=== PATIENT | female | born 1990 | race African-American/Black ===

== ENCOUNTER 2017-08-05 17:56 | Emergency (ER) | payer MEDICARE ==
[~2017-08-05] VITALS: Ht 160 cm; Wt 84.0 kg
[2017-08-05] MEDS ORDERED: SODIUM CHLORIDE 0.9% 1,000 ML IV ONE (22:56)
[2017-08-05] MEDS ORDERED: ACETAMINOPHEN 325MG TABLET PO PRN (23:00)
[2017-08-05] MEDS ORDERED: ONDANSETRON HCL 4MG/2ML VIAL IV ONE (23:00)
[2017-08-05 23:17] LABS: BASOPHILS % 0.3 % (0.0-2.0); EOSINOPHILS % 0.5 % (0.0-5.0); HEMATOCRIT. 35.4 % (36.0-48.0); HEMOGLOBIN. 11.1 g/dL (12.0-16.0); MEAN CORPUSCULAR HEMOGLOBIN 24.4 pg (28.0-32.0); MEAN PLATELET VOLUME 11.4 fl (7.4-10.4); MONOCYTES % 6.4 % (2.0-8.0); NEUTROPHILS % 73.8 % (40.0-76.0); PLATELET 142 x1000/uL (130-400); RED BLOOD CELL COUNT 4.54 mill/uL (4.2-5.4); RED CELL DISTRIBUTION WIDTH 21.3 % (11.6-14.6)
[2017-08-05 23:24] LABS: CARBON DIOXIDE 27 mEq/L (21-32); CHLORIDE 105 mEq/L (98-107)
[2017-08-05 23:49] LABS: B-HCG QUANTITATIVE 177810 mIU/mL (<3)
[2017-08-06 00:23] LABS: CLARITY URINE CLEAR (CLEAR); COLOR URINE DARK YELLOW (YELLOW); KETONES URINE TRACE (NEGATIVE); LEUKOCYTE ESTERASE URINE TRACE (NEGATIVE); NITRITE URINE NEGATIVE (NEGATIVE); OCCULT BLOOD URINE NEGATIVE (NEGATIVE); PROTEIN URINE TRACE (NEGATIVE); SPECIFIC GRAVITY URINE 1.038 (1.005-1.030)
[2017-08-06 00:46] LABS: *AMPHETAMINES SCREEN URINE NEGATIVE (NEGATIVE); *BARBITURATES SCREEN URINE NEGATIVE (NEGATIVE); *BENZODIAZEPINES SCREEN URINE NEGATIVE (NEGATIVE); *COCAINE SCREEN URINE NEGATIVE (NEGATIVE); METHADONE URINE SCREEN NEGATIVE (NEGATIVE); OPIATES URINE SCREEN NEGATIVE (NEGATIVE); PHENCYCLIDINE URINE SCREEN NEGATIVE (NEGATIVE)
[2017-08-06 01:03] LABS: CANNABINOID URINE SCREEN PRESUMTIVE POSITIVE (NEGATIVE)
[2017-08-06] MEDS: HYDROCODONE/ACETAMINOPHEN 5/325MG TABLET PO SCH ×2 (02:28→04:11)
[2017-08-06 04:11] VITALS: BP 122/74
[2017-08-10 09:16] LABS: CHLAMYDIA TRACHOMATIS NAA Negative (Negative); NEISSERIA GONORRHOEAE NAA Negative (Negative)
== END 2017-08-06 04:09 | disposition home or self-care (01) ==
LOC: ER 17:56
DX: O21.9 Vomiting of pregnancy, unspecified (principal); R42 Dizziness and giddiness; R10.30 Lower abdominal pain, unspecified; Z3A.01 Less than 8 weeks gestation of pregnancy
CPT/HCPCS: 36415; 76801; 76817; 80053; 80305; 81001; 81025; 84702; 85025; 86850; 86900; 86901; 87077; 87086; 87186; 87210; 87491; 87591; 96361; 96374; 99285; J2405; Z7610

== ENCOUNTER 2017-08-24 01:04 | Emergency (ER) | payer MEDICARE ==
[~2017-08-24] VITALS: Ht 160 cm; Wt 82.0 kg
[2017-08-24 03:56] LABS: CLARITY URINE CLOUDY (CLEAR); COLOR URINE YELLOW (YELLOW); KETONES URINE 3+ (NEGATIVE); LEUKOCYTE ESTERASE URINE NEGATIVE (NEGATIVE); NITRITE URINE NEGATIVE (NEGATIVE); OCCULT BLOOD URINE NEGATIVE (NEGATIVE); PROTEIN URINE TRACE (NEGATIVE); SPECIFIC GRAVITY URINE 1.037 (1.005-1.030)
[2017-08-24 04:28] LABS: BASOPHILS % 0.3 % (0.0-2.0); EOSINOPHILS % 0.4 % (0.0-5.0); HEMATOCRIT. 33.4 % (36.0-48.0); HEMOGLOBIN. 10.5 g/dL (12.0-16.0); LYMPHOCYTES % 17.7 % (20.0-50.0); MEAN CORPUSCULAR HEMOGLOBIN 25.1 pg (28.0-32.0); MEAN CORPUSCULAR VOLUME 79.9 fL (81.0-99.0); MEAN PLATELET VOLUME 11.4 fl (7.4-10.4); MONOCYTES % 8.1 % (2.0-8.0); NEUTROPHILS % 73.5 % (40.0-76.0); PLATELET 149 x1000/uL (130-400); RED BLOOD CELL COUNT 4.18 mill/uL (4.2-5.4); RED CELL DISTRIBUTION WIDTH 22.3 % (11.6-14.6)
[2017-08-24 04:48] LABS: CARBON DIOXIDE 25 mEq/L (21-32); CHLORIDE 105 mEq/L (98-107)
[2017-08-24] MEDS ORDERED: SODIUM CHLORIDE 0.9% 1,000 ML IV ONE (05:30)
[2017-08-24] MEDS ORDERED: ONDANSETRON HCL 4MG/2ML VIAL IV ONE (05:30)
[2017-08-24 06:25] LABS: B-HCG QUANTITATIVE 294360 mIU/mL (<3)
[2017-08-24 06:45] VITALS: BP 114/53
== END 2017-08-24 07:15 | disposition home or self-care (01) ==
LOC: ER 01:04
DX: O26.891 Other specified pregnancy related conditions, first trimester (principal); R19.7 Diarrhea, unspecified; O21.9 Vomiting of pregnancy, unspecified; O23.41 Unspecified infection of urinary tract in pregnancy, first trimester; Z3A.09 9 weeks gestation of pregnancy
CPT/HCPCS: 36415; 76801; 80053; 81001; 81025; 84702; 85025; 86850; 86900; 86901; 96361; 96374; 99285; J2405; J7030; Z7610

== ENCOUNTER 2018-01-26 10:50 | Observation (INO) | payer MEDICAID, MEDICARE ==
[~2018-01-26] VITALS: Ht 157.5 cm; Wt 95.3 kg
[2018-01-26] MEDS ORDERED: PREN1TAB33 MT (12:19)
== END 2018-01-26 12:40 | disposition home or self-care (01) ==
LOC: L&D 10:50
PROVIDERS: ADMIT Obstetrics & Gynecology; ATTEND Obstetrics & Gynecology
DX: O99.89 Other specified diseases and conditions complicating pregnancy, childbirth and the puerperium (principal); N89.8 Other specified noninflammatory disorders of vagina; Z3A.31 31 weeks gestation of pregnancy
CPT/HCPCS: G0378 ×2

== ENCOUNTER 2018-01-26 12:55 | Emergency (ER) | payer MEDICARE ==
[~2018-01-26] VITALS: Ht 162.6 cm; Wt 91.0 kg
[~2018-01-26 12:55] MED LIST: PREN1TAB33 MT
[2018-01-26] MEDS ORDERED: CEPHALEXIN 500MG CAPSULE PO ONE (14:45)
[2018-01-26 15:40] VITALS: BP 122/80
== END 2018-01-26 16:15 | disposition home or self-care (01) ==
LOC: ER 12:55
DX: O23.593 Infection of other part of genital tract in pregnancy, third trimester (principal); L02.215 Cutaneous abscess of perineum; Z3A.32 32 weeks gestation of pregnancy
CPT/HCPCS: 56405; 87070; 87077; 87186; 87205; 99284

== ENCOUNTER 2018-02-28 14:24 | Observation (INO) | payer MEDICAID, MEDICARE ==
[~2018-02-28] VITALS: Ht 162.6 cm; Wt 91.2 kg
[2018-02-28] MEDS ORDERED: FERR325T6 PO (14:51)
== END 2018-02-28 15:30 | disposition home or self-care (01) ==
LOC: L&D 14:24
PROVIDERS: ADMIT Specialist; ATTEND Specialist
DX: O26.893 Other specified pregnancy related conditions, third trimester (principal); R10.9 Unspecified abdominal pain; Z3A.36 36 weeks gestation of pregnancy
CPT/HCPCS: G0378

== ENCOUNTER 2018-03-02 18:03 | Observation (INO) | payer MEDICAID ==
[~2018-03-02] VITALS: Ht 157.5 cm; Wt 91.2 kg
[~2018-03-02 18:03] MED LIST changes: +FERR325T6 PO
[2018-03-02 19:41] LABS: CLARITY URINE CLOUDY (CLEAR); COLOR URINE YELLOW (YELLOW); KETONES URINE 4+ (NEGATIVE); LEUKOCYTE ESTERASE URINE 2+ (NEGATIVE); NITRITE URINE POSITIVE (NEGATIVE); OCCULT BLOOD URINE NEGATIVE (NEGATIVE); PROTEIN URINE TRACE (NEGATIVE); SPECIFIC GRAVITY URINE 1.019 (1.005-1.030)
[2018-03-02] MEDS: TERBUTALINE SULFATE 1MG/ML VIAL SUBCUT NR ×2 (19:44→21:33)
[2018-03-02] MEDS ORDERED: BUTORPHANOL TARTRATE 2 MG/ML VIAL IV ONE (21:00)
[2018-03-02] MEDS ORDERED: CEFAZOLIN 2,000 MG in DEXT 5% WATER 100 ML IV SCH (21:30)
[2018-03-02 21:34] VITALS: BP 128/65
[2018-03-02] MEDS: LACTATED RINGERS 1,000 ML IV SCH ×2 (21:42→22:16)
== END 2018-03-03 06:40 | disposition home or self-care (01) ==
LOC: L&D 18:03
PROVIDERS: ADMIT Obstetrics & Gynecology; ATTEND Obstetrics & Gynecology
DX: O26.893 Other specified pregnancy related conditions, third trimester (principal); R10.9 Unspecified abdominal pain; Z3A.37 37 weeks gestation of pregnancy
CPT/HCPCS: 81003; 96361; 96365; 96372; 96375; 99281; G0378; J0595; J0690; J3105; J7120; 96360; J7060

== ENCOUNTER 2021-04-02 07:50 | Emergency (ER) | payer MEDICAID ==
[~2021-04-02] VITALS: Ht 160 cm; Wt 86.0 kg
[2021-04-02 07:57] VITALS: BP 108/69
== END 2021-04-02 08:42 | disposition home or self-care (01) ==
LOC: ER 07:50
DX: T16.1XXA Foreign body in right ear, initial encounter (principal); X58.XXXA Exposure to other specified factors, initial encounter; Y93.89 Activity, other specified; Y92.89 Other specified places as the place of occurrence of the external cause; Y99.8 Other external cause status
CPT/HCPCS: 99281

== ENCOUNTER 2021-05-31 05:45 | Emergency (ER) | payer MEDICAID ==
[~2021-05-31] VITALS: Ht 170.2 cm; Wt 101.0 kg
[2021-05-31] MEDS ORDERED: MORPHINE SULFATE 4 MG/ML CPJ (NOT FOR IM USE) IV STA (06:09)
[2021-05-31] MEDS ORDERED: ONDANSETRON HCL 4MG/2ML INJ IV STA (06:09)
[2021-05-31 06:18] LABS: CLARITY URINE CLOUDY (CLEAR); COLOR URINE YELLOW (YELLOW); KETONES URINE TRACE (NEGATIVE); LEUKOCYTE ESTERASE URINE TRACE (NEGATIVE); NITRITE URINE NEGATIVE (NEGATIVE); OCCULT BLOOD URINE 2+ (NEGATIVE); PH URINE 5.5 (4.5-8.0); PROTEIN URINE TRACE (NEGATIVE); SPECIFIC GRAVITY URINE 1.038 (1.005-1.030)
[2021-05-31 06:36] LABS: BASOPHILS % 0.3 % (0.0-2.0); EOSINOPHILS % 1.5 % (0.0-5.0); HEMATOCRIT. 35.5 % (36.0-48.0); HEMOGLOBIN. 11.2 g/dL (12.0-16.0); LYMPHOCYTES % 28.3 % (20.0-50.0); MEAN CORPUSCULAR HEMOGLOBIN 27.1 pg (28.0-32.0); MEAN CORPUSCULAR VOLUME 85.6 fL (81.0-99.0); MEAN PLATELET VOLUME 11.4 fl (7.4-10.4); MONOCYTES % 8.8 % (2.0-8.0); NEUTROPHILS % 61.1 % (40.0-76.0); PLATELET 142 x1000/uL (130-400); RED BLOOD CELL COUNT 4.15 mill/uL (4.2-5.4)
[2021-05-31 06:45] LABS: PROTHROMBIN TIME 10.9 sec (9.6-11.0)
[2021-05-31] MEDS ORDERED: KETOROLAC 15MG/ML VIAL IV ONE ×2 (06:45→08:00)
[2021-05-31 07:06] LABS: CHLORIDE 107 mEq/L (98-107)
[2021-05-31 07:09] LABS: HCG SCREEN NEGATIVE
[2021-05-31] MEDS ORDERED: TAMSULOSIN HCL 0.4MG SR CAPSULE PO ONE (07:45)
[2021-05-31] MEDS ORDERED: CEPHALEXIN 250MG CAPSULE PO ONE (07:45)
[2021-05-31] MEDS ORDERED: MORPHINE SULFATE 4 MG/ML CPJ (NOT FOR IM USE) IV ONE (08:00)
[2021-05-31] MEDS ORDERED: SODIUM CHLORIDE 0.9% 1,000 ML IV ONE (08:00)
[2021-05-31] MEDS ORDERED: TAMS-11 MT (08:49)
[2021-05-31] MEDS ORDERED: HYDR-4001 MT (08:49)
[2021-05-31] MEDS ORDERED: IBUP-2029 MT (08:49)
[2021-05-31] MEDS ORDERED: CEPH500C2 MT (08:49)
[2021-05-31 10:29] VITALS: BP 129/80
== END 2021-05-31 10:34 | disposition home or self-care (01) ==
LOC: ER 05:59
DX: N20.1 Calculus of ureter (principal); Z13.9 Encounter for screening, unspecified; Z98.890 Other specified postprocedural states
CPT/HCPCS: 36415; 74176; 80053; 81003; 81025; 83690; 84703; 85025; 85610; 96361; 96374; 96375; 96376; 99284; J1885; J2270; J2405; J7030; Z7610

== ENCOUNTER 2021-06-11 20:43 | Emergency (ER) | payer MEDICAID ==
[~2021-06-11] VITALS: Ht 160 cm; Wt 91.0 kg
[~2021-06-11 20:43] MED LIST changes: +CEPH500C2 MT; +HYDR-4001 MT; +IBUP-2029 MT; +TAMS-11 MT
[2021-06-11] MEDS ORDERED: SODIUM CHLORIDE 0.9% 1,000 ML IV ONE (22:00)
[2021-06-11] MEDS ORDERED: KETOROLAC 15MG/ML VIAL IV NR (22:00)
[2021-06-11] MEDS ORDERED: ONDANSETRON HCL 4MG/2ML INJ IV NR (22:14)
[2021-06-11 23:07] LABS: BASOPHILS % 0.1 % (0.0-2.0); EOSINOPHILS % 0.4 % (0.0-5.0); HEMATOCRIT. 35.7 % (36.0-48.0); HEMOGLOBIN. 11.6 g/dL (12.0-16.0); MEAN CORPUSCULAR HEMOGLOBIN 27.5 pg (28.0-32.0); MEAN CORPUSCULAR VOLUME 84.7 fL (81.0-99.0); MEAN PLATELET VOLUME 12.1 fl (7.4-10.4); MONOCYTES % 5.2 % (2.0-8.0); NEUTROPHILS % 85.3 % (40.0-76.0); PLATELET 147 x1000/uL (130-400); RED BLOOD CELL COUNT 4.21 mill/uL (4.2-5.4); RED CELL DISTRIBUTION WIDTH 18.2 % (11.6-14.6)
[2021-06-11 23:08] LABS: CHLORIDE 105 mEq/L (98-107)
[2021-06-11 23:13] LABS: ETHANOL BLOOD < 10 mg/dL
[2021-06-12] MEDS ORDERED: KETOROLAC 15MG/ML VIAL IV NR (00:15)
[2021-06-12] MEDS ORDERED: TAMSULOSIN HCL 0.4MG SR CAPSULE PO NR (01:00)
[2021-06-12] MEDS ORDERED: CEPHALEXIN 250MG CAPSULE PO NR (01:00)
[2021-06-12] MEDS ORDERED: HYDROCODONE/ACETAMINOPHEN 5/325MG TABLET PO NR (01:30)
[2021-06-12] MEDS ORDERED: HYDR-4001 MT (01:31)
[2021-06-12] MEDS ORDERED: ONDA4TAB5 MT (01:31)
[2021-06-12] MEDS ORDERED: CEPH500C2 MT (01:31)
[2021-06-12] MEDS ORDERED: IBUP-2029 MT (01:31)
[2021-06-12] MEDS ORDERED: TAMS-11 MT (01:31)
[2021-06-12 01:45] VITALS: BP 119/60
== END 2021-06-12 03:36 | disposition home or self-care (01) ==
LOC: ER 20:43
DX: N13.2 Hydronephrosis with renal and ureteral calculous obstruction (principal); D72.829 Elevated white blood cell count, unspecified; N83.201 Unspecified ovarian cyst, right side; R10.9 Unspecified abdominal pain; Z87.442 Personal history of urinary calculi; Z98.890 Other specified postprocedural states
CPT/HCPCS: 36415; 76770; 76830; 76856; 80053; 80320; 81025; 83690; 85025; 96361; 96374; 96375; 96376; 99284; J1885; J2405; Z7610; G0480

== ENCOUNTER 2022-07-13 22:58 | Emergency (ER) | payer MEDICAID ==
[~2022-07-13] VITALS: Ht 167.6 cm; Wt 109.2 kg
[~2022-07-13 22:58] MED LIST changes: +ONDA4TAB5 MT
[2022-07-14] MEDS ORDERED: DEXAMETHASONE 4MG TABLET PO ONE (01:45)
[2022-07-14] MEDS ORDERED: DEXAMETHASONE 2MG TABLET PO NR (02:00)
[2022-07-14 02:22] VITALS: BP 127/64
== END 2022-07-14 02:24 | disposition home or self-care (01) ==
LOC: ER 22:58
DX: B34.9 Viral infection, unspecified (principal); Z98.890 Other specified postprocedural states
CPT/HCPCS: 99283; J8540

== ENCOUNTER 2023-03-09 11:58 | Emergency (ER) | payer MEDICAID ==
[~2023-03-09] VITALS: Ht 160 cm; Wt 105.9 kg
[2023-03-09 12:05] VITALS: O2SAT 96
[2023-03-09 12:52] LABS: BASOPHILS % 0.2 % (0.0-2.0); EOSINOPHILS % 1.5 % (0.0-5.0); HEMATOCRIT. 39.8 % (36.0-48.0); HEMOGLOBIN. 12.8 g/dL (12.0-16.0); LYMPHOCYTES % 22.7 % (20.0-50.0); MEAN CORPUSCULAR HEMOGLOBIN 29.2 pg (28.0-32.0); MEAN CORPUSCULAR HGB CONC 32.1 g/dL (31.0-37.0); MEAN PLATELET VOLUME 12.7 fl (7.4-10.4); MONOCYTES % 6.4 % (2.0-8.0); NEUTROPHILS % 69.2 % (40.0-76.0); PLATELET 137 x1000/uL (130-400); RED BLOOD CELL COUNT 4.38 mill/uL (4.2-5.4); RED CELL DISTRIBUTION WIDTH 13.5 % (11.6-14.6); WHITE BLOOD COUNT 7.8 x1000/uL (4.5-11.0)
[2023-03-09 12:59] LABS: CHLORIDE 107 mEq/L (98-107); INDEX HEMOLYSI 1 (1-3); INDEX ICTERIC 1 (1-4); INDEX LIPEMIC 1 (1-3); POTASSIUM 4.1 mEq/L (3.5-5.1); SODIUM 137 mEq/L (136-145)
[2023-03-09 13:09] LABS: ALANINE AMINOTRANSFERASE 38 IU/L (13-61); ALBUMIN 3.5 g/dL (3.4-5.0); ASPARTATE AMINOTRANSFERASE 21 IU/L (15-37); BILIRUBIN TOTAL 0.3 mg/dL (0.1-1.0); CALCIUM 8.8 mg/dL (8.5-10.1); CARBON DIOXIDE 26 mEq/L (21-32); CREATININE 0.7 mg/dL (0.6-1.3); GLUCOSE 92 mg/dL (70-105); PROTEIN TOTAL 7.9 g/dL (6.0-8.3); UREA NITROGEN BLOOD 10 mg/dL (7-21)
[2023-03-09 13:19] LABS: HCG SCREEN NEGATIVE
[2023-03-09 15:45] VITALS: BP 137/82; PULSE 82; RESP 18; TEMP 98.6
[2023-03-09 16:25] LABS: CLARITY URINE CLOUDY (CLEAR); COLOR URINE ORANGE (YELLOW); GLUCOSE URINE NEGATIVE (NEGATIVE); KETONES URINE NEGATIVE (NEGATIVE); LEUKOCYTE ESTERASE URINE 1+ (NEGATIVE); NITRITE URINE NEGATIVE (NEGATIVE); OCCULT BLOOD URINE 3+ (NEGATIVE); PH URINE 5.5 (4.5-8.0); PROTEIN URINE 2+ (NEGATIVE); SPECIFIC GRAVITY URINE 1.024 (1.005-1.030); UROBILINOGEN URINE 0.2 E.U./dL (0.2-1.0)
[2023-03-09 16:32] LABS: BACTERIA URINE 2+
[2023-03-09 16:33] LABS: RBC URINE TNTC /hpf (0-2); SQUAMOUS EPITHELIAL CELL URINE 1+ /lpf (RARE/1+)
== END 2023-03-09 15:46 | disposition home or self-care (01) ==
LOC: ER 11:58
DX: B34.9 Viral infection, unspecified (principal); R07.89 Other chest pain; J45.909 Unspecified asthma, uncomplicated; Z98.890 Other specified postprocedural states; Z79.899 Other long term (current) drug therapy
CPT/HCPCS: 36415; 71045; 76830; 76856; 80053; 81003; 84703; 85025; 93005; 99285

== ENCOUNTER 2023-04-02 09:24 | Emergency (ER) | payer MEDICAID ==
[~2023-04-02] VITALS: Ht 162.6 cm; Wt 106.0 kg
[2023-04-02 09:53] VITALS: BP 116/65; PULSE 72; RESP 16; TEMP 98.5; O2SAT 100
[2023-04-02] MEDS ORDERED: CEPH500C2 PO (10:23)
[2023-04-02] MEDS ORDERED: SULF1TAB48 PO (10:23)
[2023-04-02] MEDS ORDERED: ACETAMINOPHEN 325MG TABLET PO ONE (10:30)
== END 2023-04-02 10:58 | disposition home or self-care (01) ==
LOC: ER 09:24
DX: L03.115 Cellulitis of right lower limb (principal); J45.909 Unspecified asthma, uncomplicated; Z79.899 Other long term (current) drug therapy; Z98.890 Other specified postprocedural states
CPT/HCPCS: 99281; 99283

== ENCOUNTER 2023-06-04 18:19 | Emergency (ER) | payer MEDICAID ==
[~2023-06-04] VITALS: Ht 160 cm; Wt 91.0 kg
[~2023-06-04 18:19] MED LIST changes: +CEPH500C2 PO; +SULF1TAB48 PO
[2023-06-04 18:23] VITALS: O2SAT 99
[2023-06-04 23:01] LABS: BASOPHILS % 0.3 % (0.0-2.0); DIFFERENTIAL COMMENT 0; EOSINOPHILS % 2.4 % (0.0-5.0); HEMATOCRIT. 36.9 % (36.0-48.0); LYMPHOCYTES % 23.7 % (20.0-50.0); MEAN CORPUSCULAR HEMOGLOBIN 29.3 pg (28.0-32.0); MEAN CORPUSCULAR HGB CONC 32.6 g/dL (31.0-37.0); MEAN CORPUSCULAR VOLUME 89.9 fL (81.0-99.0); MEAN PLATELET VOLUME 11.5 fl (7.4-10.4); MONOCYTES % 7.2 % (2.0-8.0); NEUTROPHILS % 66.4 % (40.0-76.0); PLATELET 135 x1000/uL (130-400); RED CELL DISTRIBUTION WIDTH 14.5 % (11.6-14.6); WHITE BLOOD COUNT 9.4 x1000/uL (4.5-11.0)
[2023-06-04 23:08] LABS: CHLORIDE 109 mEq/L (98-107); INDEX HEMOLYSI 1 (1-3); INDEX ICTERIC 1 (1-4); INDEX LIPEMIC 1 (1-3); POTASSIUM 3.7 mEq/L (3.5-5.1); SODIUM 139 mEq/L (136-145)
[2023-06-04 23:12] LABS: HCG SCREEN NEGATIVE
[2023-06-04 23:18] LABS: ALANINE AMINOTRANSFERASE 31 IU/L (13-61); ALBUMIN 3.1 g/dL (3.4-5.0); ASPARTATE AMINOTRANSFERASE 19 IU/L (15-37); BILIRUBIN TOTAL 0.2 mg/dL (0.1-1.0); CALCIUM 8.1 mg/dL (8.5-10.1); CARBON DIOXIDE 26 mEq/L (21-32); CREATININE 0.7 mg/dL (0.6-1.3); GLUCOSE 98 mg/dL (70-105); PROTEIN TOTAL 7.6 g/dL (6.0-8.3); TROPONIN I HIGH SENSITIVITY 15 ng/L (<54); UREA NITROGEN BLOOD 16 mg/dL (7-21)
[2023-06-05 00:45] VITALS: BP 115/55; PULSE 85; RESP 20; TEMP 98.4
== END 2023-06-05 01:05 | disposition home or self-care (01) ==
LOC: ER 18:19
DX: R07.89 Other chest pain (principal); R11.2 Nausea with vomiting, unspecified; R19.7 Diarrhea, unspecified; J45.909 Unspecified asthma, uncomplicated; F12.10 Cannabis abuse, uncomplicated; Z79.899 Other long term (current) drug therapy; Z98.890 Other specified postprocedural states; Z20.822 Contact with and (suspected) exposure to COVID-19
CPT/HCPCS: 80053; 84703; 83690; 85025; 84484; 87804 ×2; 36415; 71045; 99285; 99406; 87426; 93005; C9803; Z7610 ×2

== ENCOUNTER 2023-08-19 20:21 | Emergency (ER) | payer MEDICAID | END 2023-08-19 22:47 | disposition left against medical advice (07) | LOC: ER 20:21 | DX: F41.9 Anxiety disorder, unspecified (principal); Z53.21 Procedure and treatment not carried out due to patient leaving prior to being seen by health care provider ==

== ENCOUNTER 2023-08-21 10:14 | Emergency (ER) | payer MEDICAID ==
[~2023-08-21] VITALS: Ht 157.5 cm; Wt 96.0 kg
[2023-08-21 10:28] VITALS: BP 130/90; PULSE 79; RESP 18; TEMP 98.4; O2SAT 100
[2023-08-21 11:09] LABS: BASOPHILS % 0.3 % (0.0-2.0); HEMATOCRIT. 40.3 % (36.0-48.0); HEMOGLOBIN. 12.9 g/dL (12.0-16.0); LYMPHOCYTES % 24.2 % (20.0-50.0); MEAN CORPUSCULAR HEMOGLOBIN 28.7 pg (28.0-32.0); MEAN CORPUSCULAR HGB CONC 31.9 g/dL (31.0-37.0); MEAN PLATELET VOLUME 11.5 fl (7.4-10.4); MONOCYTES % 6.8 % (2.0-8.0); NEUTROPHILS % 67.7 % (40.0-76.0); PLATELET 145 x1000/uL (130-400); RED BLOOD CELL COUNT 4.48 mill/uL (4.2-5.4); RED CELL DISTRIBUTION WIDTH 14.1 % (11.6-14.6)
[2023-08-21 11:11] LABS: CALCIUM 9.1 mg/dL (8.7-10.4); CARBON DIOXIDE 27 mEq/L (21-32); CHLORIDE 104 mEq/L (98-107); CREATININE 0.7 mg/dL (0.6-1.0); GLUCOSE 85 mg/dL (70-105); HCG SCREEN NEGATIVE; POTASSIUM 4.6 mEq/L (3.5-5.1); SODIUM 137 mEq/L (136-145); UREA NITROGEN BLOOD 12 mg/dL (9-23)
[2023-08-21] MEDS ORDERED: HYDR-459 MT (12:10)
[2023-08-21] MEDS ORDERED: LORAZEPAM 1MG TABLET PO ONE (12:15)
== END 2023-08-21 12:53 | disposition home or self-care (01) ==
LOC: ER 10:14
DX: F41.9 Anxiety disorder, unspecified (principal); J45.909 Unspecified asthma, uncomplicated; Z79.899 Other long term (current) drug therapy; Z98.890 Other specified postprocedural states
CPT/HCPCS: 36415; 71045; 80048; 81025; 84703; 85025; 93005; 99285

== ENCOUNTER 2023-08-30 18:00 | Emergency (ER) | payer MEDICAID ==
[~2023-08-30] VITALS: Ht 167.6 cm; Wt 90.0 kg
[~2023-08-30 18:00] MED LIST changes: +HYDR-459 MT
[2023-08-30 18:06] VITALS: BP 124/79; TEMP 98.6; O2SAT 99
[2023-08-30] MEDS ORDERED: DEXAMETHASONE 4MG TABLET PO ONE (19:00)
[2023-08-30] MEDS ORDERED: IBUP-2028 MT (19:03)
[2023-08-30] MEDS ORDERED: PENI500T MT (19:03)
[2023-08-30] MEDS ORDERED: DEXAMETHASONE 2MG TABLET PO NR (19:15)
[2023-08-30 20:26] VITALS: PULSE 84; RESP 14
== END 2023-08-30 20:26 | disposition home or self-care (01) ==
LOC: ER 18:00
DX: J03.90 Acute tonsillitis, unspecified (principal); J45.909 Unspecified asthma, uncomplicated; Z98.890 Other specified postprocedural states; Z79.899 Other long term (current) drug therapy
CPT/HCPCS: 99283; J8540; Z7610

== ENCOUNTER 2024-03-20 14:48 | Emergency (ER) | payer MEDICAID ==
[~2024-03-20] VITALS: Ht 162.6 cm; Wt 104.0 kg
[~2024-03-20 14:48] MED LIST changes: +IBUP-2028 MT; +PENI500T MT
[2024-03-20 14:59] VITALS: TEMP 98; O2SAT 99
[2024-03-20] MEDS ORDERED: SODIUM CHLORIDE 0.9% 1,000 ML IV ONE (15:15)
[2024-03-20 15:51] LABS: BASOPHILS % 0.2 % (0.0-2.0); EOSINOPHILS % 1.8 % (0.0-5.0); HEMATOCRIT. 34.6 % (36.0-48.0); HEMOGLOBIN. 10.9 g/dL (12.0-16.0); LYMPHOCYTES % 24.4 % (20.0-50.0); MEAN CORPUSCULAR HEMOGLOBIN 28.9 pg (28.0-32.0); MEAN CORPUSCULAR HGB CONC 31.4 g/dL (31.0-37.0); MEAN CORPUSCULAR VOLUME 92.2 fL (81.0-99.0); MONOCYTES % 7.6 % (2.0-8.0); PLATELET 121 x1000/uL (130-400); RED BLOOD CELL COUNT 3.75 mill/uL (4.2-5.4); RED CELL DISTRIBUTION WIDTH 14.4 % (11.6-14.6); WHITE BLOOD COUNT 6.5 x1000/uL (4.5-11.0)
[2024-03-20 15:57] LABS: CHLORIDE 109 mEq/L (98-107); POTASSIUM 4.1 mEq/L (3.5-5.1); SODIUM 141 mEq/L (136-145)
[2024-03-20 15:58] LABS: CALCIUM 8.8 mg/dL (8.7-10.4); CARBON DIOXIDE 27 mEq/L (21-32)
[2024-03-20 16:03] LABS: CREATININE 0.9 mg/dL (0.6-1.0); GLUCOSE 86 mg/dL (70-105); UREA NITROGEN BLOOD 13 mg/dL (9-23)
[2024-03-20 16:07] LABS: B-HCG QUANTITATIVE < 1 mIU/mL (<3)
[2024-03-20 19:24] VITALS: BP 103/58; PULSE 70; RESP 11; O2SAT 98
== END 2024-03-20 19:28 | disposition home or self-care (01) ==
LOC: ER 14:48
DX: N93.8 Other specified abnormal uterine and vaginal bleeding (principal); D69.6 Thrombocytopenia, unspecified; D64.9 Anemia, unspecified; J45.909 Unspecified asthma, uncomplicated; Z98.890 Other specified postprocedural states; Z79.899 Other long term (current) drug therapy
CPT/HCPCS: 99284; 76830; 76856; 80048; 84702; 85025; 86850; 86900; 86901; 36415; J7030

== ENCOUNTER 2024-06-25 14:33 | Emergency (ER) | payer MEDICAID ==
[~2024-06-25] VITALS: Ht 160 cm; Wt 90.7 kg
[2024-06-25 14:37] VITALS: O2SAT 100
[2024-06-25 14:42] VITALS: BP 98/64; PULSE 89; RESP 16; TEMP 98.5; O2SAT 100
[2024-06-25 16:20] LABS: CLARITY URINE CLOUDY (CLEAR); COLOR URINE YELLOW (YELLOW); GLUCOSE URINE NEGATIVE (NEGATIVE); KETONES URINE NEGATIVE (NEGATIVE); LEUKOCYTE ESTERASE URINE TRACE (NEGATIVE); NITRITE URINE NEGATIVE (NEGATIVE); OCCULT BLOOD URINE NEGATIVE (NEGATIVE); PH URINE 6.5 (4.5-8.0); PROTEIN URINE NEGATIVE (NEGATIVE); SPECIFIC GRAVITY URINE 1.022 (1.005-1.030); UROBILINOGEN URINE 0.2 E.U./dL (0.2-1.0)
[2024-06-25 16:50] LABS: BACTERIA URINE 1+; RBC URINE NONE SEEN /hpf (0-2); SQUAMOUS EPITHELIAL CELL URINE 2+ /lpf (RARE/1+); WBC URINE NONE SEEN /hpf (0-2)
[2024-06-25] MEDS ORDERED: TUSSL MT (17:43)
[2024-06-25] MEDS ORDERED: CETI1TAB MT (17:43)
[2024-06-25] MEDS ORDERED: TOPUD MT (17:43)
== END 2024-06-25 17:59 | disposition home or self-care (01) ==
LOC: ER 14:39
DX: J06.9 Acute upper respiratory infection, unspecified (principal); Z79.899 Other long term (current) drug therapy; Z20.822 Contact with and (suspected) exposure to COVID-19
CPT/HCPCS: 81003; 87426; 87804; 99283

== ENCOUNTER 2024-07-08 09:54 | Emergency (ER) | payer MEDICAID ==
[~2024-07-08] VITALS: Ht 157.5 cm; Wt 90.7 kg
[~2024-07-08 09:54] MED LIST changes: +CETI1TAB MT; +TOPUD MT; +TUSSL MT
[2024-07-08 09:57] VITALS: O2SAT 100
[2024-07-08 10:02] VITALS: TEMP 97.7; O2SAT 100
[2024-07-08 11:19] LABS: CLARITY URINE TURBID (CLEAR); COLOR URINE ORANGE (YELLOW); GLUCOSE URINE NEGATIVE (NEGATIVE); KETONES URINE TRACE (NEGATIVE); LEUKOCYTE ESTERASE URINE 1+ (NEGATIVE); NITRITE URINE NEGATIVE (NEGATIVE); OCCULT BLOOD URINE 3+ (NEGATIVE); PH URINE 5.5 (4.5-8.0); PROTEIN URINE 1+ (NEGATIVE); SPECIFIC GRAVITY URINE 1.029 (1.005-1.030)
[2024-07-08 11:26] LABS: CARBON DIOXIDE 22 mEq/L (21-32); CHLORIDE 108 mEq/L (98-107); POTASSIUM 4.1 mEq/L (3.5-5.1); SODIUM 139 mEq/L (136-145)
[2024-07-08 11:27] LABS: CALCIUM 9.3 mg/dL (8.7-10.4)
[2024-07-08 11:28] LABS: HEMOGLOBIN. 9.6 g/dL (12.0-16.0); MEAN CORPUSCULAR HEMOGLOBIN 21.9 pg (28.0-32.0); MEAN CORPUSCULAR HGB CONC 30.1 g/dL (31.0-37.0); MEAN CORPUSCULAR VOLUME 72.5 fL (81.0-99.0); MEAN PLATELET VOLUME 10.8 fl (7.4-10.4); PLATELET 206 x1000/uL (130-400); RED BLOOD CELL COUNT 4.41 mill/uL (4.2-5.4); RED CELL DISTRIBUTION WIDTH 21.3 % (11.6-14.6); WHITE BLOOD COUNT 11.7 x1000/uL (4.5-11.0)
[2024-07-08 11:31] LABS: CREATININE 0.8 mg/dL (0.6-1.0)
[2024-07-08 11:32] LABS: GLUCOSE 122 mg/dL (70-105); UREA NITROGEN BLOOD 12 mg/dL (9-23)
[2024-07-08 11:33] LABS: HCG SCREEN NEGATIVE
[2024-07-08 11:34] LABS: ALANINE AMINOTRANSFERASE 18 IU/L (10-49); ALBUMIN 4.7 g/dL (3.2-4.8); ASPARTATE AMINOTRANSFERASE 22 IU/L (<34); BILIRUBIN DIRECT 0.1 mg/dL (<=3.0); BILIRUBIN TOTAL 0.4 mg/dL (0.1-1.0); PROTEIN TOTAL 8.4 g/dL (6.0-8.3)
[2024-07-08 11:41] LABS: RBC URINE TNTC /hpf (0-2); WBC URINE 15-25 /hpf (0-2)
[2024-07-08 11:42] LABS: BACTERIA URINE 3+; SQUAMOUS EPITHELIAL CELL URINE 3+ /lpf (RARE/1+)
[2024-07-08 11:57] LABS: DIFFERENTIAL COMMENT 1
[2024-07-08] MEDS ORDERED: AMOX1TAB16 MT (12:02)
[2024-07-08] MEDS: SODIUM CHLORIDE 0.9% 1,000 ML IV ONE (12:10)
[2024-07-08] MEDS: CEFTRIAXONE 1GM/50ML 50 ML IV ONE (12:10)
[2024-07-08 12:11] VITALS: BP 145/84; PULSE 84; RESP 19
[2024-07-08] MEDS: KETOROLAC 30MG/ML VIAL IM STA (12:11)
[2024-07-08] MEDS: ONDANSETRON 4MG ODT PO STA (12:11)
[2024-07-08 13:15] LABS: MICROCYTOSIS 1+; PLATELET ESTIMATE NORMAL
[2024-07-08 13:16] LABS: ANISOCYTOSIS 3+
== END 2024-07-08 13:28 | disposition home or self-care (01) ==
LOC: ER 09:54
DX: N39.0 Urinary tract infection, site not specified (principal); F12.10 Cannabis abuse, uncomplicated; Z79.899 Other long term (current) drug therapy; Z98.890 Other specified postprocedural states
CPT/HCPCS: 99285; 74176; 96365; 80076; 80048; 81003; 81025; 84703; 83690; 85025; 87086; 36415; 96372; Q0162; J0696; J1885; J7030

== ENCOUNTER 2024-09-09 22:10 | Emergency (ER) | payer MEDICAID ==
[~2024-09-09 22:10] MED LIST changes: +AMOX1TAB16 MT
[2024-09-09 22:13] VITALS: PULSE 116; O2SAT 100
== END 2024-09-09 23:40 | disposition left against medical advice (07) ==
LOC: ER 22:10
DX: R10.9 Unspecified abdominal pain (principal); Z53.21 Procedure and treatment not carried out due to patient leaving prior to being seen by health care provider

== ENCOUNTER 2025-03-09 10:54 | Emergency (ER) | payer MEDICAID, OTHER ==
[~2025-03-09] VITALS: Ht 160 cm; Wt 100.0 kg
[~2025-03-09 10:54] MED LIST changes: -TAMS-11 MT; +TAMS-54 MT
[2025-03-09 11:04] VITALS: O2SAT 99
[2025-03-09 12:02] LABS: BASOPHILS % 0.3 % (0.0-2.0); EOSINOPHILS % 1.6 % (0.0-5.0); HEMATOCRIT. 35.6 % (36.0-48.0); HEMOGLOBIN. 11.7 g/dL (12.0-16.0); LYMPHOCYTES % 17.6 % (20.0-50.0); MEAN PLATELET VOLUME 11.6 fl (7.4-10.4); MONOCYTES % 7.4 % (2.0-8.0); NEUTROPHILS % 73.1 % (40.0-76.0); PLATELET 128 x1000/uL (130-400); RED BLOOD CELL COUNT 4.05 mill/uL (4.2-5.4); RED CELL DISTRIBUTION WIDTH 14.7 % (11.6-14.6)
[2025-03-09 12:21] LABS: CREATININE 0.8 mg/dL (0.6-1.0); UREA NITROGEN BLOOD 15 mg/dL (9-23)
[2025-03-09 12:22] LABS: TROPONIN I HIGH SENSITIVITY 7 ng/L (3.0-34)
[2025-03-09 12:23] LABS: ASPARTATE AMINOTRANSFERASE 18 IU/L (<34); BILIRUBIN DIRECT 0.1 mg/dL (<=3.0); BILIRUBIN TOTAL 0.4 mg/dL (0.1-1.0)
[2025-03-09 12:24] LABS: PROTEIN TOTAL 7.5 g/dL (6.0-8.3)
[2025-03-09] MEDS: FAMOTIDINE 20MG TABLET PO ONE (12:25)
[2025-03-09] MEDS: PANTOPRAZOLE 40MG DR TABLET PO ONE (12:25)
[2025-03-09 12:41] LABS: HCG SCREEN NEGATIVE
[2025-03-09 14:37] VITALS: BP 126/78; PULSE 97; RESP 15; TEMP 36.8; O2SAT 100
[2025-03-09] MEDS ORDERED: FAMO40TA7 MT (14:39)
[2025-03-09] MEDS ORDERED: PANT40TA51 MT (14:39)
[2025-03-09] MEDS ORDERED: IBUP-2028 MT (14:40)
== END 2025-03-09 14:55 | disposition home or self-care (01) ==
LOC: ER 10:54
DX: R07.9 Chest pain, unspecified (principal); R06.02 Shortness of breath; K21.9 Gastro-esophageal reflux disease without esophagitis; Z98.890 Other specified postprocedural states; Z79.899 Other long term (current) drug therapy
CPT/HCPCS: 36415; 71045; 80048; 80076; 84484; 84703; 85025; 93005; 99285

== ENCOUNTER 2025-07-07 22:16 | Emergency (ER) | payer MEDICAID, OTHER ==
[~2025-07-07] VITALS: Ht 160 cm; Wt 103.0 kg
[~2025-07-07 22:16] MED LIST changes: +FAMO40TA7 MT; +IBUP-1455 MT; -IBUP-2029 MT; +PANT40TA51 MT
[2025-07-07 22:19] VITALS: O2SAT 100
[2025-07-07 22:36] VITALS: BP 134/72; PULSE 94; RESP 16; TEMP 36.9; O2SAT 99
[2025-07-07 23:57] VITALS: TEMP 98.4
[2025-07-07] MEDS: ACETAMINOPHEN 325MG TABLET PO ONE (23:57)
[2025-07-08] MEDS ORDERED: NAPR-1176 MT (02:46)
[2025-07-08 05:19] LABS: HCG SCREEN NEGATIVE
== END 2025-07-08 03:00 | disposition home or self-care (01) ==
LOC: ER 22:16
DX: S62.307A Unspecified fracture of fifth metacarpal bone, left hand, initial encounter for closed fracture (principal); S09.90XA Unspecified injury of head, initial encounter; Z79.1 Long term (current) use of non-steroidal anti-inflammatories (NSAID); V00.141A Fall from scooter (nonmotorized), initial encounter; Y93.89 Activity, other specified; Y92.89 Other specified places as the place of occurrence of the external cause; Y99.8 Other external cause status
CPT/HCPCS: 29125; 73130; 84703; 99284